=== PATIENT | male | born 1990 | race Caucasian/White ===

== ENCOUNTER 2021-03-26 09:38 | Outpatient (REF) | payer OTHER, SELFPAY ==
[2021-03-26 10:30] LABS: Alanine Aminotransferase 33 U/L (0-40); Albumin Level 4.9 g/dL (3.5-5.0); Alkaline Phosphatase 80 U/L (39-117); Aspartate Amino Transferase 35 U/L (5-37); Bilirubin Direct 0.4 mg/dL (0.0-0.5)
[2021-03-26 10:36] LABS: Valproate 21.1 mcg/mL (50.0-100.0)
== END 2021-03-26 09:39 | disposition home or self-care (01) ==
LOC: HO.LAB 09:38
PROVIDERS: Visit Provider Psychiatry & Neurology Neurology
DX: G40.209 Localization-related (focal) (partial) symptomatic epilepsy and epileptic syndromes with complex partial seizures, not intractable, without status epilepticus (principal); Z79.899 Other long term (current) drug therapy
CPT/HCPCS: 36415; 80076; 80164

== ENCOUNTER 2024-10-11 14:11 | Outpatient (REF) | payer OTHER, SELFPAY ==
[2024-10-11 15:50] LABS: Alanine Aminotransferase 20 U/L (0-40); Albumin Level 4.9 g/dL (3.5-5.0); Alkaline Phosphatase 65 U/L (39-117); Aspartate Amino Transferase 27 U/L (5-37); Total Protein 7.3 g/dL (6.5-8.0)
== END 2024-10-11 14:12 | disposition home or self-care (01) ==
LOC: HO.LAB 14:11
PROVIDERS: Visit Provider Psychiatry & Neurology Neurology
DX: G40.109 Localization-related (focal) (partial) symptomatic epilepsy and epileptic syndromes with simple partial seizures, not intractable, without status epilepticus (principal); R25.1 Tremor, unspecified
CPT/HCPCS: 36415; 80076; 99212

== ENCOUNTER 2024-10-11 14:11 | Outpatient (AMB) | payer OTHER, SELFPAY ==
--- NOTE | 2024-10-11 14:17 | A.OFFVIS_ITS ---
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 Symptoms included a distinct and difficult to describe feeling before the seizure. He also described it as electrical feeling behind the eye, a dreamlike state, fogginess leading to unresponsiveness, and then generalized convulsion. One EEG revealed left temporal interictal discharges. MRI of brain with and without contrast in 2014 revealed abnormal left hippocampal configuration but no obvious sclerosis. The patient presenting with a wellness follow-up for epilepsy management and medication refill. He reports a stable regimen of Depakote 500 mg once daily in the evening, which he has recently refilled for a year at [facility]. 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 The patient reports no changes in his mood or sleep, which he describes as stable. He did not present with any new symptoms. There was a request for a blood test, which has not yet been completed. The patient did not express any additional queries about his epilepsy management during this visit. [facility] Medical History (Updated 10/11/24 @ 14:19 by Lakshmi Monteiro MD) Acne Tremor Temporal lobe epilepsy Review of Systems Const Details: - Neurological: Denies changes in seizure activity or new neurologic symptoms. - Mood: Reports stable mood. - Sleep: Reports adequate sleep. Physical Exam Neuro Other: Mental Status: Alert and oriented to person, place, and time. Normal attention. Normal spontaneous speech, fluency, and comprehension. No obvious issues with mood and memory. Affect is appropriate. Cranial Nerves: CN II: Visual islas full to confrontation, visual acuity intact. CN III, IV, : Pupils equal, round, reactive to light and accommodation. Extraocular movements are normal. CN V: Facial sensation is normal. CN VII: Facial movements symmetrical. CN VIII: Hearing intact to bedside conversation is normal. CN IX, X: Palate elevates symmetrically. CN XI: Shoulder shrug and head turn symmetrical. CN XII: Tongue midline without atrophy or fasciculations. Motor: Bulk and tone normal in all extremities. No significant muscle weakness in arms and legs. No drift. Reflexes: Deep tendon reflexes 2+ and symmetric. Plantar response down-going bilaterally. Coordination: Vpmizf-us-ljyc and xeih-vl-osda testing normal. No dysmetria. Gait and Station: No obvious gait abnormality. No ataxia or instability. Extrapyramidal: Full facial expressions and blinking. No rigidity. Movements are appropriate with no tremor or abnormality. Speech: Normal; no dysarthria or tremor. Assessment & Plan Assessment & Plan (1) Temporal lobe epilepsy: Comment: Meds tried: Depakote (but he does not tolerate more than 500mg) Routine EEG at [facility] in Apr 2021: WNL EEG at [facility] in 2007: abnormal with interictal discharges with left temp focus CT WO at [facility] in 2007: [place] (reported) MRI brain WWO at [facility] in May 2014: asymmetry of left hippocampus with abnormal convolution but no sclerosis. Code(s): G40.109 - Localization-related (focal) (partial) symptomatic epilepsy and epileptic syndromes with simple partial seizures, not intractable, without status epilepticus Category: Medical (2) Tremor: Code(s): R25.1 - Tremor, unspecified Category: Medical Plan Impression: Stable temporal lobe epilepsy Rec: a: Divalproex acid 500mg one a day b: LFTs Orders: Orders Liver Panel Today G40.109 - Localization-related (focal) (partial) symptomatic epilepsy and epileptic syndromes with simple partial seizures, not intractable, without status epilepticus Medications: New divalproex ER 500 mg PO DAILY 90 tabs 3RF Coding Level of Care Code Est Pt Level 4 (24626) Diagnoses Temporal lobe epilepsy G40.109 Tremor R25.1
--- OUTSIDE RECORDS SUMMARY | 2024-10-11 14:30 | XMS_ITS | Clinical Summary ---
Author Organization [facility] Address [address] [place] [id number] Phone Care Team Providers Care Insulator Technician Name Role Phone Pcp, Unknown Primary Care Provider Unavailabl e Allergies Active Allergy Reactions Criticality Noted Date Comments Penicillins 03/23/2019 Medications divalproex (DEPAKOTE) [address] tablet Take 1 tablet by mouth daily. Active Family History Medical History Relation Comments Colon cancer Father Hypertension Father Heart attack Maternal Grandmother Hyperlipidemia Mother Heart attack Paternal Grandfather Relation Status Comments Father Maternal Grandmother Mother Alive Paternal Grandfather Social History Tobacco Use Types Packs/Day Years Used Date Smoking Tobacco: Never Smokeless Tobacco: Never Alcohol Use Standard Drinks/Week Comments Yes 0 (1 standard drink = 0.6 oz pur e alcohol) Education Answer Date Recorded Are you interested in more education? Not on waldemar e 06/26/2022 Are you concerned about learning? Not on file 06/26/2022 No 06/26/2022 No 06/26/2022 Digital Access Answer Date Recorded No 07/24/2022 No 07/24/2022 Reliable internet access at home? Not on file 07/24/2022 Device with a working camera? Not on file Sex and Gender Information Value Date Recorded Sex Assigned at Male 03/23/2019 10:01 PM EST Legal Sex Male 9:04 PM EDT Gender Identity Male 03/23/2019 10:01 PM EST Sexual Orientation Straight 03/23/2019 10 :01 PM EST Last Filed Vital Signs Vital Sign Reading Time Taken Comments Blood Pressure 106/66 03/23/2019 9:59 PM EST Pulse 93 03/23/2019 9:59 PM EST Temperature 37 C (98.6 F) 03/23/2019 9:59 PM EST Respiratory Rate 16 03/23/2019 9:59 PM EST Oxygen Saturation 98% 03/23/2019 9:59 PM EST Inhaled Oxygen Concentration - - Weight 72.6 kg (160 lb) 03/23/2019 9:59 PM EST Height 180.3 cm (5' 11 ) 03/23/2019 9:59 PM EST Body Mass Index 22.32 03/23/2019 9:59 PM EST Plan of Treatment Health Maintenance Due Date Last Done Comments LIPID PANEL 1989 VALPROIC ACID (DEPAKENE) LEVEL 1989 DEPRESSION SCREENING 2001 HEPATITIS C SCREENING 07/26/2007 HIV ONE-TIME SCREENING (18-6 5 YEARS) 07/26/2007 SMOKING STATUS SCREENING (On ce After 26 Yrs) 07/26/2015 Adult Td,Tdap Booster 04/29/2022 04/29/2012 COVID-19 VACCINE (2023-2 5 season) 2023 HEPATITIS A VACCINES Aged Out No long er eligible based on patient's age to complete this topic HIB VACCINES Aged Out No longer eligi ble based on patient's age to complete this topic MENINGOCOCCAL VACCINES (ACWY) Aged Out No longer eligible based on patient's age to complete this topic MENINGOCOCCAL VACCINES (B) Aged Out N o longer eligible based on patient's age to complete this topic PNEUMOCOCCAL VACCINES (0-49 years) Aged Out No longer eligible based on patient's age to complete this topic Medical Devices Not on file Insurance [facility] [employer] [facility] [employer] [address] [place] [address] [place] [address] [employer]HER [facility] [employer] Care Teams Insulator Technician Relationship Specialty Start Date End Date Pcp, Unknown PCP - General 09/05/21 Additional Source Comments The information contained in this document represents components of the legal health record. It is not the complete legal health record.[facility]
== END 2024-10-11 14:26 | disposition home or self-care (01) ==
LOC: HO.HSM 14:12
PROVIDERS: PCP Family Medicine; Visit Provider Psychiatry & Neurology Neurology
DX: G40.109 Localization-related (focal) (partial) symptomatic epilepsy and epileptic syndromes with simple partial seizures, not intractable, without status epilepticus (principal); R25.1 Tremor, unspecified
CPT/HCPCS: 99214